=== PATIENT | male | born 1995 | race Asian ===

== ENCOUNTER 2022-05-01 | Emergency (ER) | payer OTHER ==
[~2022-05-01] VITALS: Ht 170.2 cm; Wt 74.4 kg
[2022-05-01 01:42] VITALS: BP 108/69
[2022-05-01] MEDS ORDERED: TETANUS, DIPHTHERIA, PERTUSSIS VAC/PF 0.5ML (>10YR OLD) IM ONE (06:00)
[2022-05-01] MEDS ORDERED: LIDOCAINE HCL/PF 1% 10 MG/ML 5ML VIAL INFIL ONE (06:00)
[2022-05-01] MEDS ORDERED: ACETAMINOPHEN 325MG TABLET PO ONE (06:00)
[2022-05-01] MEDS ORDERED: BACITRACIN ZINC OINT UDPKT TOP ONE (06:00)
== END 2022-05-01 06:58 | disposition home or self-care (01) ==
LOC: ER
DX: S01.81XA Laceration without foreign body of other part of head, initial encounter (principal); W18.39XA Other fall on same level, initial encounter; Y93.89 Activity, other specified; Y92.89 Other specified places as the place of occurrence of the external cause; Y99.8 Other external cause status
CPT/HCPCS: 12011; 90471; 90715; 99283; J3490